=== PATIENT | male | born 1990 | race Caucasian/White ===

== ENCOUNTER 2018-10-06 15:21 | Emergency (ER) | payer MEDICARE ==
[~2018-10-06] VITALS: Ht 167.6 cm; Wt 76.0 kg
--- NOTE | 2018-10-06 16:01 | NUR ---
LATE NOTE ABEL FOR 152: Pt brought in by EMS with c/o nausea and "seizure aura". Pt AOX4 with some slowed slurred speech. Pt states, "I took 1mg of clonazapam and 20mg of CBD oil because I felt a seizure coming on, then I called 911." Pt able to maintain airway and secretions. Pt speaking in full sentences. Pt has contracture of RUE. Seizure precautions in place. PIV started by ED RN at bedside. Pt recieved 4 mg Zofran SL by EMS, no other interventions by EMS. Pt denies trauma, cp, sob, vomiting, diarrhea, loss of bowel or bladder control, or trauma to oral cavity or tongue. 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 They surgical shrank it and told me I wouldn't have any other problems. I started having seizures again at 22 years old, the clot was growing. I had surgery for it again." NADN. Pt connected to NIBP, continous pulse ox, and spo2% monitor. Call light within reach. No needs expressed at this time.
[2018-10-06 16:08] LABS: BASOPHILS # (AUTO) 0.08 x10^3/uL (0-0.1); BASOPHILS % (AUTO) 1 % (0-1); EOSINOPHILS # (AUTO) 0.07 x10^3/uL (0-0.4); EOSINOPHILS % (AUTO) 1 % (1-7); LYMPHOCYTES # (AUTO) 2.11 x10^3/uL (1-3.4); LYMPHOCYTES % (AUTO) 23 % (22-44); MD NO; MEAN CORPUSCULAR HEMOGLOBIN 30.1 pg (27.5-34.5); MEAN CORPUSCULAR HGB CONC 33.1 g/dL (33.2-36.2); MEAN CORPUSCULAR VOLUME 90.8 fL (81-97); MEAN PLATELET VOLUME 8.3 fL (7.4-10.4); MONOCYTES # (AUTO) 0.51 x10^3/uL (0.2-0.8); MONOCYTES % (AUTO) 6 % (2-9); NEUTROPHILS # (AUTO) 6.27 x10^3/uL (1.8-6.8); NEUTROPHILS % (AUTO) 69 % (42-75); PLATELET COUNT 348 x10^3/uL (130-400); RED BLOOD COUNT 5.56 x10^6/uL (4.38-5.82); RED CELL DISTRIBUTION WIDTH 14.7 % (9.4-14.8)
[2018-10-06] MEDS ORDERED: GABA300C10 PO (16:08)
[2018-10-06] MEDS ORDERED: CBD OIL PO (16:08)
[2018-10-06] MEDS ORDERED: LACO50TA PO (16:08)
[2018-10-06] MEDS ORDERED: IBUP-11 PO (16:08)
[2018-10-06] MEDS ORDERED: TRAM50TA2 PO (16:08)
[2018-10-06] MEDS ORDERED: CYCL5TAB PO (16:08)
[2018-10-06] MEDS ORDERED: CLON1TAB11 PO (16:08)
[2018-10-06 16:19] LABS: ALBUMIN 4.3 g/dL (3.4-5.0); ANION GAP 6 mmol/L (5-15); CALCIUM 8.9 mg/dL (8.5-10.1); CHLORIDE 109 mmol/L (98-107); CREATININE 0.93 mg/dL (0.7-1.3)
[2018-10-06 16:20] LABS: ALANINE AMINOTRANSFERASE 42 U/L (12-78); ALKALINE PHOSPHATASE 85 U/L (45-117); BILIRUBIN,TOTAL 0.5 mg/dL (0.2-1.0); TOTAL PROTEIN 7.8 g/dL (6.4-8.2)
--- NOTE | 2018-10-06 16:41 | NUR ---
Patient given discharge instructions and they have confirmed that they understand the instructions. Patient ambulatory with steady gait. Pt left with d/c paperwork, restriction note, and all personal belongings. Pt states, "I will call an uber to pick me up."
[2018-10-06 16:42] VITALS: BP 104/66
[2018-10-06] MEDS ORDERED: ONDANSETRON ODT 4 MG ONE (16:52)
== END 2018-10-06 16:58 | disposition home or self-care (01) ==
LOC: ED 16:25
DX: G40.909 Epilepsy, unspecified, not intractable, without status epilepticus (principal); F17.200 Nicotine dependence, unspecified, uncomplicated; Z00.01 Encounter for general adult medical examination with abnormal findings
CPT/HCPCS: 36415; 80053; 85025; 93005; 99284

== ENCOUNTER 2018-11-19 07:10 | Emergency (ER) | payer MEDICARE ==
[~2018-11-19] VITALS: Ht 167.6 cm; Wt 71.5 kg
[~2018-11-19 07:10] MED LIST: CBD OIL PO; CLON1TAB11 PO; CYCL5TAB PO; GABA300C10 PO; IBUP-11 PO; LACO50TA PO; TRAM50TA2 PO
[2018-11-19 07:13] VITALS: BP 130/63
== END 2018-11-19 08:00 | disposition home or self-care (01) ==
LOC: ED 07:55
DX: K08.89 Other specified disorders of teeth and supporting structures (principal); G40.909 Epilepsy, unspecified, not intractable, without status epilepticus; Z79.899 Other long term (current) drug therapy
CPT/HCPCS: 99283

== ENCOUNTER 2018-11-20 17:12 | Emergency (ER) | payer MEDICARE ==
[~2018-11-20] VITALS: Ht 167.6 cm; Wt 70.0 kg
[2018-11-20 17:14] VITALS: BP 118/64
[2018-11-20] MEDS ORDERED: LIDOCAINE-MPF 1%, 5ML ONE (17:49)
[2018-11-20] MEDS ORDERED: BUPIVACAINE 0.25% ONE (17:49)
[2018-11-20] MEDS ORDERED: LIDOCAINE-MPF 1%, 5ML INFIL ONE (18:00)
[2018-11-20] MEDS ORDERED: BUPIVACAINE/PF-EPI 0.25% 1:200K SQ ONE (18:00)
== END 2018-11-20 18:25 | disposition home or self-care (01) ==
LOC: ED 18:15
DX: K04.6 Periapical abscess with sinus (principal); G40.909 Epilepsy, unspecified, not intractable, without status epilepticus; F17.200 Nicotine dependence, unspecified, uncomplicated
CPT/HCPCS: 41800; 99283

== ENCOUNTER 2018-11-27 20:24 | Emergency (ER) | payer MEDICARE, MEDICAID ==
[~2018-11-27] VITALS: Ht 165.1 cm; Wt 75.0 kg
[2018-11-27 20:35] VITALS: BP 116/72
--- NOTE | 2018-11-27 20:42 | NUR ---
PATIENT BIB [facility] FOR [facility] AFTER TRIPPING TODAY, ABRASION/HEMATOMA TO LT EYEBROW, ABRASIONS TO NOSE, BILAT ELBOWS, AND LT KNEE. PATIENT REPORTS LOC (UNKNOWN DURATION). A+OX4 AT THIS TIME. PATIENT TO CT VIA [facility].
--- NOTE | 2018-11-27 20:59 | NUR ---
REPORT FROM ANTWAN SEGUNDO. PT RETURNED FROM CT. A&OX4 AND TALKATIVE. GROSS NEURO INTACT. PT UPDATED TO POC (CT RESULTS/WOUND CARE) AND DEMONSTRATES UNDERSTANDING. BP/SPO2 MONITORING IN PLACE.
--- NOTE | 2018-11-27 21:01 | NUR ---
REPORT TO ANTWAN GUTIERREZ.
[2018-11-27] MEDS ORDERED: BACITRACIN ZINC OINT 500U/GM, 0.9 GM ONE (21:03)
[2018-11-27] MEDS ORDERED: IBUPROFEN 600 MG TABLET ONE (21:27)
[2018-11-27] MEDS ORDERED: IBUPROFEN 200 MG TABLET PO ONE (21:30)
--- NOTE | 2018-11-27 21:40 | NUR ---
PT MEDICATED PER EMAR FOR PAIN. DC EDUCATION PROVIDED, PT DEMONSTRATES UNDERSTANDING. PT AMBULATED STEADILY TO DC WITH RN. PT TO TAKE TAXI HOME
== END 2018-11-27 21:42 | disposition home or self-care (01) ==
LOC: ED 20:48
DX: S00.83XA Contusion of other part of head, initial encounter (principal); S00.31XA Abrasion of nose, initial encounter; S00.511A Abrasion of lip, initial encounter; G40.909 Epilepsy, unspecified, not intractable, without status epilepticus; W01.0XXA Fall on same level from slipping, tripping and stumbling without subsequent striking against object, initial encounter; Y93.89 Activity, other specified; Y92.410 Unspecified street and highway as the place of occurrence of the external cause; Y99.8 Other external cause status
CPT/HCPCS: 70450; 70486; 99284